=== PATIENT | male | born 1945 | race Caucasian/White ===

== ENCOUNTER 2016-08-05 14:31 | Outpatient (CLI) | payer OTHER ==
[2015-10-03 21:23] VITALS: BP 136/48
== END 2016-08-05 14:32 ==
LOC: LAB 14:31
PROVIDERS: ATTEND Internal Medicine Cardiovascular Disease
DX: I48.91 Unspecified atrial fibrillation (principal); Z79.01 Long term (current) use of anticoagulants
CPT/HCPCS: 36415; 85610

== ENCOUNTER 2016-09-02 10:08 | Outpatient (CLI) | payer OTHER ==
[2015-10-03 21:23] VITALS: BP 136/48
== END 2016-09-02 10:10 ==
LOC: LAB 10:08
PROVIDERS: ATTEND Internal Medicine Cardiovascular Disease
DX: Z51.81 Encounter for therapeutic drug level monitoring (principal); Z79.01 Long term (current) use of anticoagulants; I48.91 Unspecified atrial fibrillation
CPT/HCPCS: 36415; 85610

== ENCOUNTER 2016-09-22 12:59 | Outpatient (CLI) | payer OTHER ==
[2015-10-03 21:23] VITALS: BP 136/48
== END 2016-09-22 13:00 ==
LOC: LAB 12:59
PROVIDERS: ATTEND Internal Medicine Cardiovascular Disease
DX: Z51.81 Encounter for therapeutic drug level monitoring (principal); Z79.01 Long term (current) use of anticoagulants; I48.91 Unspecified atrial fibrillation
CPT/HCPCS: 36415; 85610

== ENCOUNTER 2016-10-13 11:40 | Outpatient (CLI) | payer OTHER ==
[2015-10-03 21:23] VITALS: BP 136/48
== END 2016-10-13 11:42 ==
LOC: LAB 11:40
PROVIDERS: ATTEND Internal Medicine Cardiovascular Disease
DX: Z51.81 Encounter for therapeutic drug level monitoring (principal); Z79.01 Long term (current) use of anticoagulants; I48.91 Unspecified atrial fibrillation
CPT/HCPCS: 36415; 85610

== ENCOUNTER 2016-11-10 09:55 | Outpatient (CLI) | payer OTHER ==
[2015-10-03 21:23] VITALS: BP 136/48
== END 2016-11-10 09:56 ==
LOC: LAB 09:55
PROVIDERS: ATTEND Internal Medicine Cardiovascular Disease
DX: Z51.81 Encounter for therapeutic drug level monitoring (principal); Z79.01 Long term (current) use of anticoagulants; I48.91 Unspecified atrial fibrillation
CPT/HCPCS: 36415; 85610

== ENCOUNTER 2016-12-29 09:54 | Outpatient (CLI) | payer OTHER ==
[2015-10-03 21:23] VITALS: BP 136/48
== END 2016-12-29 09:55 ==
LOC: LAB 09:54
PROVIDERS: ATTEND Internal Medicine Cardiovascular Disease
DX: I48.91 Unspecified atrial fibrillation (principal); Z79.899 Other long term (current) drug therapy
CPT/HCPCS: 36415; 85610

== ENCOUNTER 2017-01-19 12:10 | Outpatient (CLI) | payer OTHER ==
[2015-10-03 21:23] VITALS: BP 136/48
== END 2017-01-19 12:11 ==
LOC: LAB 12:10
PROVIDERS: ATTEND Internal Medicine Cardiovascular Disease
DX: Z79.01 Long term (current) use of anticoagulants (principal)
CPT/HCPCS: 36415; 85610

== ENCOUNTER 2017-03-24 11:43 | Outpatient (CLI) | payer OTHER ==
[2015-10-03 21:23] VITALS: BP 136/48
== END 2017-03-24 11:44 ==
LOC: LAB 11:43
PROVIDERS: ATTEND Internal Medicine Cardiovascular Disease
DX: I48.91 Unspecified atrial fibrillation (principal)
CPT/HCPCS: 36415; 85610

== ENCOUNTER 2017-04-13 11:02 | Outpatient (CLI) | payer OTHER ==
[2015-10-03 21:23] VITALS: BP 136/48
== END 2017-04-13 11:04 ==
LOC: LAB 11:02
PROVIDERS: ATTEND Internal Medicine Cardiovascular Disease
DX: I48.91 Unspecified atrial fibrillation (principal)
CPT/HCPCS: 36415; 85610

== ENCOUNTER 2017-04-30 10:33 | Outpatient (CLI) | payer OTHER ==
[2015-10-03 21:23] VITALS: BP 136/48
== END 2017-04-30 10:34 ==
LOC: LAB 10:33
PROVIDERS: ATTEND Internal Medicine Cardiovascular Disease
DX: I48.91 Unspecified atrial fibrillation (principal)
CPT/HCPCS: 36415; 85610

== ENCOUNTER 2017-06-03 11:19 | Outpatient (CLI) | payer OTHER ==
[2015-10-03 21:23] VITALS: BP 136/48
== END 2017-06-03 11:20 ==
LOC: LAB 11:19
PROVIDERS: ATTEND Internal Medicine Cardiovascular Disease
DX: I48.91 Unspecified atrial fibrillation (principal)
CPT/HCPCS: 36415; 85610

== ENCOUNTER 2017-06-07 22:22 | Emergency (ER) | payer OTHER ==
[2017-06-07] MEDS ORDERED: ONDANSETRON HCL/PF 4 MG/ 2ML VIAL ONE (22:35)
[2017-06-07] MEDS ORDERED: 0.9 % SODIUM CHLORIDE 1,000 ML IV ONE (22:35)
[2017-06-07] MEDS ORDERED: ONDANSETRON HCL/PF 4 MG/ 2ML VIAL IVP ONE (22:42)
--- NOTE | 2017-06-07 22:51 | ED Physician Documentation ---
Abdominal Pain - HISTORIAN Historian: patient, spouse, paramedics, child - HPI Chief Complaint: Abdominal Pain Additonal Information: ate salami andcheese sandwich aprox 1700hrs started n/e approx 3 min later-now dry heaves nausea. son ate same 1500 w/n ill effects. pt has eaten salami before w/o difficulty Onset: hours (1730) Duration: waxing, waning, other (better now still some dry heaves and nausea) Context: bad food (possdidbly). denies: out of country travel Severity: moderate Quality: pain, burning, cramping Associated Symptoms: nausea, vomiting. denies: coffee ground emesis, bloody emesis, diarrhea, bloody stools Exacerbated by: nothing Relieved by: nothing - ROS CONST: no problems. denies: recent illness GI/: none. denies: constipation, black stools, bloody urine, bloody stools, dark urine CVS/RESP: none, shortness of breath (keshia w/exertion on home o2) MS/SKIN/LYMPH: none NEURO/PSYCH: none - SOCIAL HX Smoking History: non-smoker Alcohol Use: none Drug Use: none - FAMILY HX Family History: no significant history - PAST HX Past History: cardiac disease, GERD, other (a fib diabetes w/per neuropathy) Other History: diabetes Type 1 (htn) Home Medications: Ambulatory Orders Medication Instructions Recorded Atorvastatin Calcium [Lipitor] 40 mg PO 0800 10/03/15 Cholecalciferol (Vitamin D3) 10,000 unit PO WEEKLY AT 0600 10/03/15 [Vitamin D3] Cholecalciferol [Vitamin D-3] 1,000 unit PO DAILY 10/03/15 Cyanocobalamin (Vitamin B-12) 2,500 mcg PO QDAY 10/03/15 [Vitamin B12] Docusate Sodium [Colace] 100 mg PO DAILY 10/03/15 Ferrous Sulfate [Feosol] 325 mg PO QID 10/03/15 Furosemide [Furosemide] 80 mg PO BID 10/03/15 Glimepiride [Glimepiride] 4 mg PO BID 10/03/15 Levothyroxine Sodium 150 mcg PO QDAY 10/03/15 [Levothyroxine Sodium] Metformin HCl [Glucophage] 500 mg PO BID 10/03/15 Metoprolol Tartrate [Metoprolol 100 mg PO BID 10/03/15 Tartrate] Pantoprazole Sodium [Pantoprazole 40 mg PO QDAY 10/03/15 Sodium] Pnv95/Ferrous Fumarate/FA 1 each PO QDAY 10/03/15 [ Caplet] Potassium Chloride [Potassium 10 meq PO QDAY 10/03/15 Chloride] Warfarin Sodium [Coumadin] 5 mg PO 1800 10/03/15 gliPIZIDE ER [Glucotrol XL] 10 mg PO BID 10/03/15 Allergies/Adverse Reactions: Allergies Allergy/AdvReac Type Severity Reaction Status Date / Time lisinopril Allergy Verified 10/03/15 19:14 - VITAL SIGNS Vital Signs: Vital Signs Temp Pulse Resp BP Pulse Ox 136/48 10/03/15 21:21 - REVIEWED ASSESSMENTS Nursing Assessment Reviewed: Yes Vitals Reviewed: Yes ED Results Lab/Radiology - Lab Results Lab Results: Lab Results 06/07/17 06/07/17 22:46 22:46 WBC 14.00 K/ul H K/ul (4.00-12.00) RBC 4.19 M/ul M/ul (3.90-5.20) Hgb 12.3 g/dL g/dL (12.0-18.0) Hct 37.3 % % (37.0-53.0) MCV 88.9 fl fl (80.0-100.0) MCH 29.3 pg pg (28.0-34.0) MCHC 32.9 g/dL g/dL (30.0-36.0) RDW 15.1 % H % (11.3-14.3) Plt Count 319 K/mm3 K/mm3 (130-400) Neut % (Auto) 86.1 % H % (39.0-79.0) Lymph % (Auto) 8.3 % L % (16.0-50.0) [place] % (Auto) 2.9 % % (0.0-11.0) Eos % (Auto) 1.7 % % (0.0-6.8) Baso % (Auto) 0.5 (0.0-1.5) Neut # (Auto) 12.1 # k/uL H # k/uL (1.4-7.7) Lymph # (Auto) 1.2 # k/uL # k/uL (0.6-4.0) [place] # (Auto) 0.4 # k/uL # k/uL (0.0-0.9) Eos # (Auto) 0.2 # k/uL # k/uL (0.0-0.6) Baso # (Auto) 0.1 # k/uL # k/uL (0.0-0.5) Reactive Lymphs % 0.4 % % (0.0-5.0) Reactive Lymphs # 0.1 # k/uL # k/uL (0.0-0.8) Sodium 138 mmol/L mmol/L (136-145) Potassium 3.0 mmol/L L mmol/L (3.5-5.1) Chloride 93 mmol/L L mmol/L (98-107) Carbon Dioxide 34 mmol/L H mmol/L (22-30) BUN 21 mg/dL H mg/dL (9-20) Creatinine 1.30 mg/dL H mg/dL (0.66-1.25) Est GFR ( Amer) > 60 (60 - ) Est GFR (Non-Af Amer) 58 L (60 - ) Glucose 202 mg/dL H mg/dL (74-106) Calcium 8.7 mg/dL mg/dL (8.4-10.2) Total Bilirubin 1.0 mg/dL mg/dL (0.2-1.3) AST 164 U/L H U/L (15-46) ALT 106 U/L H U/L (13-69) Alkaline Phosphatase 145 U/L H U/L (38-126) Total Protein 7.3 g/dL g/dL (6.3-8.2) Albumin 3.7 g/dL g/dL (3.5-5.0) - Radiology Radiology Impressions: cxr=cardiomegally abd=xs gas feces - Orders Orders: ED Orders Category Date Time Status Place IV Lock 1T Care 06/07/17 22:44 Active ABD SERIES PA CHEST [RAD] Stat Exams 06/07/17 Taken CBC/PLATELET/DIFF Routine Lab 06/07/17 22:46 Completed CMP Routine Lab 06/07/17 22:46 Completed LIPASE Stat Lab 06/07/17 22:45 Received URINALYSIS Routine Lab 06/07/17 Ordered 0.9 % Sodium Chloride [Normal Saline] 1,000 ml Med 06/07/17 22:35 Discontinued IV .STK-MED 0.9 % Sodium Chloride [Normal Saline] 1,000 ml Med 06/07/17 23:00 Ordered IV Q10H Ondansetron HCl/Pf [Zofran 4 mg/2 ml] Med 06/07/17 22:35 Discontinued 4 mg .ROUTE .STK-MED ONE Ondansetron HCl/Pf [Zofran 4 mg/2 ml] Med 06/07/17 22:42 Discontinued 4 mg IVP NOW ONE EKG WITH COMPARISON Stat Ther 06/07/17 Ordered Abdominal Pain Physical Exam - Physical Exam General Appearance: moderate distress EENT: eye inspection normal NECK: normal inspection, other (obese pt wt 346) RESPIRATORY: breath sounds normal, rales (slight) CVS: irregularly irregular rhy ABDOMEN: soft, distended (markedly keshia dt obesity) SKIN: warm/dry, normal color, other (few small excoriated krysta compatible w/ chronic scratching). No: cyanosis, diaphoresis, jaundice, mottled EXTREMITIES: edema, other (ischemic vasc disease-pvd stasis). No: non-tender, normal range of motion NEURO: oriented X3, motor nml, sensation nml, mood/affect nml, cognition normal Vital Signs: Vital Signs Temp Pulse Resp BP Pulse Ox 136/48 10/03/15 21:21 Discharge Clincal Impression: possible foodl intolerance-salami, xs gas feces, Morbid obesity, diabetes- hypokalemia Referrals: Ashleigh Stern, [employer] [Primary Care Provider] - 2 Days Comments: rec f/u soon w/pcp inc k tabs to 2 daily- consider bowel clean out-wt reduction- pt reports he has been loosing wt-wt now =340lbs Condition: Good Disposition: 01 HOME, SELF-CARE Decision to Admit: NO Decision Time: 00:17
[2017-06-07] MEDS ORDERED: 0.9 % SODIUM CHLORIDE 1,000 ML IV SCH (23:00)
[2017-06-07 23:41] LABS: BASOPHILS % 0.5 (0.0-1.5); EOSINOPHILS % 1.7 % (0.0-6.8); MEAN CORPUSCULAR HEMOGLOBIN 29.3 pg (28.0-34.0); MEAN CORPUSCULAR VOLUME 88.9 fl (80.0-100.0); MONOCYTES % 2.9 % (0.0-11.0); NEUTROPHILS # 12.1 # k/uL (1.4-7.7)
[2017-06-07 23:42] LABS: eGFR (African) > 60; eGFR (Non-African) 58
[2017-06-08 00:45] VITALS: BP 127/71
--- NOTE | 2017-06-08 06:28 | Diagnostic Imaging Report ---
ADALBERTO CAM [facility] [address] [facility] [address] [address] Report Submission Date: Jun 07, 2017 11:38:18 PM RETIREMENT ASSISTANT Patient Study Name: SISI LUNA Date: Jun 07, 2017 11:03:33 PM RETIREMENT ASSISTANT Modality Type: CR Gender: M Description: CHEST,ABDOMEN : 47 Institution: [facility] Physician: ADALBERTO CAM Obstructive series with chest x-ray Clinical history: ABD SERIES, ABD PAIN, SOB Findings: Examination of the chest and single upright view demonstrates the lungs to be clear. The cardiac silhouette is prominent and the aorta is atherosclerotic. Bony thorax appears intact. Examination of the abdomen in supine and upright views demonstrates gas and stool throughout the colon. There is no obstruction or free air. Degenerative changes are seen in the hips and thoracolumbar spine. Impression: 1 left ventricular prominence. 2. Thoracolumbar spondylosis. 3. No obstruction or free air. Electronically signed on Jun 07, 2017 11:38:18 PM RETIREMENT ASSISTANT by: Jin BOWLING
== END 2017-06-08 00:25 | disposition home or self-care (01) ==
LOC: ED 22:22
DX: R14.3 Flatulence (principal); E23.2 Diabetes insipidus; E66.01 Morbid (severe) obesity due to excess calories
CPT/HCPCS: 74022; 80053; 83690; 85025; 93005; J2405; J7030; 96361; 96374; 99283

== ENCOUNTER 2017-07-16 11:31 | Outpatient (CLI) | payer OTHER | END 2017-07-16 11:32 | LOC: LAB 11:31 | PROVIDERS: ATTEND Internal Medicine Cardiovascular Disease | DX: I48.91 Unspecified atrial fibrillation (principal) | CPT/HCPCS: 36415; 85610 ==

== ENCOUNTER 2017-07-22 16:04 | Outpatient (CLI) | payer OTHER | END 2017-07-22 16:05 | LOC: LAB 16:04 | PROVIDERS: ATTEND Internal Medicine Cardiovascular Disease | DX: I48.91 Unspecified atrial fibrillation (principal) | CPT/HCPCS: 36415; 85610 ==

== ENCOUNTER 2017-07-27 10:15 | Outpatient (CLI) | payer OTHER | END 2017-07-27 10:16 | LOC: LAB 10:15 | PROVIDERS: ATTEND Internal Medicine Cardiovascular Disease | DX: I48.91 Unspecified atrial fibrillation (principal) | CPT/HCPCS: 36415; 85610 ==

== ENCOUNTER 2017-08-03 12:15 | Outpatient (CLI) | payer OTHER | END 2017-08-03 12:16 | LOC: LAB 12:15 | PROVIDERS: ATTEND Internal Medicine Cardiovascular Disease | DX: I48.91 Unspecified atrial fibrillation (principal) | CPT/HCPCS: 36415; 85610 ==

== ENCOUNTER 2017-09-01 12:57 | Outpatient (CLI) | payer OTHER | END 2017-09-01 13:00 | LOC: CARD 12:57 | PROVIDERS: ATTEND Internal Medicine Cardiovascular Disease | DX: I50.9 Heart failure, unspecified (principal); I48.91 Unspecified atrial fibrillation; I35.0 Nonrheumatic aortic (valve) stenosis; I10 Essential (primary) hypertension; E78.5 Hyperlipidemia, unspecified; E11.9 Type 2 diabetes mellitus without complications; E66.9 Obesity, unspecified; G47.30 Sleep apnea, unspecified | CPT/HCPCS: G0463 ==

== ENCOUNTER 2017-09-16 12:34 | Outpatient (CLI) | payer OTHER | END 2017-09-16 12:44 | LOC: LAB 12:34 | PROVIDERS: ATTEND Internal Medicine Cardiovascular Disease | DX: I48.91 Unspecified atrial fibrillation (principal) | CPT/HCPCS: 36415; 85610 ==

== ENCOUNTER 2017-10-05 12:23 | Outpatient (CLI) | payer OTHER | END 2017-10-05 12:24 | LOC: LAB 12:23 | PROVIDERS: ATTEND Internal Medicine Cardiovascular Disease | DX: I48.91 Unspecified atrial fibrillation (principal) | CPT/HCPCS: 36415; 85610 ==

== ENCOUNTER 2017-11-02 15:47 | Outpatient (CLI) | payer OTHER | END 2017-11-02 15:50 | LOC: LAB 15:47 | PROVIDERS: ATTEND Internal Medicine Cardiovascular Disease | DX: I48.91 Unspecified atrial fibrillation (principal) | CPT/HCPCS: 36415; 85610 ==

== ENCOUNTER 2017-11-23 12:19 | Outpatient (CLI) | payer OTHER | END 2017-11-23 13:54 | LOC: LAB 12:19 | PROVIDERS: ATTEND Internal Medicine Cardiovascular Disease | DX: I48.91 Unspecified atrial fibrillation (principal) | CPT/HCPCS: 36415; 85610 ==

== ENCOUNTER 2017-12-21 10:22 | Outpatient (CLI) | payer OTHER | END 2017-12-21 10:23 | LOC: LAB 10:22 | PROVIDERS: ATTEND Internal Medicine Cardiovascular Disease | DX: I48.91 Unspecified atrial fibrillation (principal) | CPT/HCPCS: 36415; 85610 ==

== ENCOUNTER 2018-01-25 12:14 | Outpatient (CLI) | payer OTHER | END 2018-01-25 12:16 | LOC: LAB 12:14 | PROVIDERS: ATTEND Internal Medicine Cardiovascular Disease | DX: I48.91 Unspecified atrial fibrillation (principal) | CPT/HCPCS: 36415; 85610 ==

== ENCOUNTER 2018-03-02 10:15 | Outpatient (CLI) | payer OTHER | END 2018-03-02 10:16 | LOC: LAB 10:15 | PROVIDERS: ATTEND Internal Medicine Cardiovascular Disease | DX: I48.91 Unspecified atrial fibrillation (principal) | CPT/HCPCS: 36415; 85610 ==

== ENCOUNTER 2018-03-16 13:27 | Outpatient (CLI) | payer OTHER | END 2018-03-16 13:30 | LOC: CARD 13:27 | PROVIDERS: ATTEND Internal Medicine Cardiovascular Disease | DX: I50.9 Heart failure, unspecified (principal); I48.91 Unspecified atrial fibrillation; I35.0 Nonrheumatic aortic (valve) stenosis; I10 Essential (primary) hypertension; E78.5 Hyperlipidemia, unspecified; E11.9 Type 2 diabetes mellitus without complications; E66.9 Obesity, unspecified; G47.30 Sleep apnea, unspecified | CPT/HCPCS: G0463 ==

== ENCOUNTER 2018-04-07 11:28 | Outpatient (CLI) | payer OTHER | END 2018-04-07 11:30 | LOC: LAB 11:28 | PROVIDERS: ATTEND Internal Medicine Cardiovascular Disease | DX: Z79.01 Long term (current) use of anticoagulants (principal); I48.91 Unspecified atrial fibrillation | CPT/HCPCS: 36415; 85610 ==

== ENCOUNTER 2018-06-14 11:23 | Outpatient (CLI) | payer OTHER | END 2018-06-14 11:24 | LOC: LAB 11:23 | PROVIDERS: ATTEND Nurse Practitioner Family | DX: I48.91 Unspecified atrial fibrillation (principal); I50.9 Heart failure, unspecified | CPT/HCPCS: 36415; 85610 ==

== ENCOUNTER 2018-07-01 10:58 | Outpatient (CLI) | payer OTHER | END 2018-07-01 11:00 | LOC: LAB 10:58 | PROVIDERS: ATTEND Nurse Practitioner Family | DX: I48.91 Unspecified atrial fibrillation (principal); I50.9 Heart failure, unspecified | CPT/HCPCS: 36415; 85610 ==

== ENCOUNTER 2018-08-26 09:22 | Outpatient (CLI) | payer OTHER | END 2018-08-26 09:24 | LOC: LAB 09:22 | PROVIDERS: ATTEND Nurse Practitioner Family | DX: I48.91 Unspecified atrial fibrillation (principal); I50.9 Heart failure, unspecified | CPT/HCPCS: 36415; 85610 ==

== ENCOUNTER 2018-09-30 10:02 | Outpatient (CLI) | payer OTHER | END 2018-09-30 10:04 | LOC: LAB 10:02 | PROVIDERS: ATTEND Nurse Practitioner Family | DX: I48.91 Unspecified atrial fibrillation (principal); I50.9 Heart failure, unspecified | CPT/HCPCS: 36415; 85610 ==

== ENCOUNTER 2018-11-01 10:01 | Outpatient (CLI) | payer OTHER | END 2018-11-01 10:03 | LOC: LAB 10:01 | PROVIDERS: ATTEND Nurse Practitioner Family | DX: I48.91 Unspecified atrial fibrillation (principal); I50.9 Heart failure, unspecified | CPT/HCPCS: 36415; 85610 ==

== ENCOUNTER 2018-11-30 08:06 | Outpatient (CLI) | payer OTHER | END 2018-11-30 08:08 | LOC: LAB 08:06 | PROVIDERS: ATTEND Nurse Practitioner Family | DX: I48.91 Unspecified atrial fibrillation (principal); I50.9 Heart failure, unspecified | CPT/HCPCS: 36415; 85610 ==

== ENCOUNTER 2019-01-10 14:06 | Outpatient (CLI) | payer OTHER | END 2019-01-10 14:08 | LOC: LAB 14:06 | PROVIDERS: ATTEND Nurse Practitioner Family | DX: I48.91 Unspecified atrial fibrillation (principal); I50.9 Heart failure, unspecified | CPT/HCPCS: 36415; 85610 ==

== ENCOUNTER 2019-02-09 10:29 | Outpatient (CLI) | payer OTHER | END 2019-02-09 10:32 | LOC: LAB 10:29 | PROVIDERS: ATTEND Nurse Practitioner Family | DX: I48.91 Unspecified atrial fibrillation (principal); I50.9 Heart failure, unspecified | CPT/HCPCS: 36415; 85610 ==

== ENCOUNTER 2019-03-14 10:00 | Outpatient (CLI) | payer OTHER | END 2019-03-14 10:03 | LOC: LAB 10:00 | PROVIDERS: ATTEND Nurse Practitioner Family | DX: I48.91 Unspecified atrial fibrillation (principal); I50.9 Heart failure, unspecified | CPT/HCPCS: 36415; 85610 ==

== ENCOUNTER 2019-04-05 11:50 | Outpatient (CLI) | payer OTHER | END 2019-04-14 11:55 | LOC: LAB 11:50 | PROVIDERS: ATTEND Nurse Practitioner Family | DX: I48.91 Unspecified atrial fibrillation (principal); I50.9 Heart failure, unspecified | CPT/HCPCS: 36415; 85610 ==

== ENCOUNTER 2019-06-07 15:22 | Outpatient (CLI) | payer OTHER | END 2019-06-07 15:27 | LOC: LAB 15:22 | PROVIDERS: ATTEND Nurse Practitioner Family | DX: I48.91 Unspecified atrial fibrillation (principal); I50.9 Heart failure, unspecified | CPT/HCPCS: 36415; 85610 ==

== ENCOUNTER 2019-07-05 11:45 | Outpatient (CLI) | payer OTHER | END 2019-07-05 11:50 | LOC: LAB 11:45 | PROVIDERS: ATTEND Nurse Practitioner Family | DX: I48.91 Unspecified atrial fibrillation (principal); I50.9 Heart failure, unspecified | CPT/HCPCS: 36415; 85610 ==